=== PATIENT | female | born 1960 | race Asian ===

== ENCOUNTER → 2019-08-06 | Day surgery (SDC) | payer MEDICARE, OTHER ==
[2019-08-04 15:56] LABS: BASOPHILS % 0.4 % (0.0-1.0); EOSINOPHILS # (AUTO) 0.1 (0.0-0.4); EOSINOPHILS % 2.3 % (0.0-6.0); HEMATOCRIT 36.4 % (34.2-44.1); HEMOGLOBIN 12.2 g/dL (12.0-16.0); LYMPHOCYTES # (AUTO) 1.5 (1.0-3.2); LYMPHOCYTES % 29.1 % (18.0-39.1); MEAN CORPUSCULAR HEMOGLOBIN 32.8 pg (28-32); MEAN CORPUSCULAR HGB CONC 33.5 g/dL (31-35); MEAN CORPUSCULAR VOLUME 97.8 fL (81-99); MONOCYTES # (AUTO) 0.5 (0.2-0.8); MONOCYTES % 9.6 % (4.4-11.3); NEUTROPHILS # (AUTO) 3.1 (2.1-6.9); NEUTROPHILS % 58.4 % (38.7-80.0); RED BLOOD COUNT 3.72 x10e6/uL (3.6-5.1); RED CELL DISTRIBUTION WIDTH 12.5 % (11.7-14.4)
[2019-08-04 16:00] LABS: PLATELET COUNT 86 x10e3/uL (140-360)
[2019-08-04 16:03] LABS: INR 1.05; PARTIAL THROMBOPLASTIN TIME 34.7 seconds (23.8-35.5); PROTHROMBIN TIME 14.4 seconds (11.9-14.5)
[2019-08-04 16:10] LABS: ALANINE AMINOTRANSFERASE 49 IU/L (0-55); ALBUMIN 3.5 g/dL (3.5-5.0); ALKALINE PHOSPHATASE 164 IU/L (40-150); ANION GAP 11.7 mmol/L (8-16); BLOOD UREA NITROGEN 15 mg/dL (7-26); BUN/CREATININE RATIO 16 (6-25); CALCIUM 9.3 mg/dL (8.4-10.2); CARBON DIOXIDE 28 mmol/L (22-29); CHLORIDE 108 mmol/L (98-107); CREATININE, SERUM 0.93 mg/dL (0.57-1.11); EST GLOMERULAR FILTRATION RATE > 60 ML/MIN (60-); GLUCOSE 126 mg/dL (74-118); POTASSIUM 4.7 mmol/L (3.5-5.1); SODIUM 143 mmol/L (136-145)
[~2019-08-06] MED LIST: B&O 60MG R/S 60 MG SUPP PR ONE; BOTULINUM TOXIN TYPE A 100 UNIT VIAL IM ONE; BYSTOLIC10 MG PO; CEFTRIAXONE SOD 1 GM/NS 50 ML 50 ML IV ONE; DEXAMETHASONE SOD PHOS INJ 4 MG/ML VIAL ONE; FENTANYL CITRATE/PF 100MCG/2 ML INJ ONE; IOPAMIDOL 300MG/ML 50ML INFUS..BTL IV ONE; LIDOCAINE HCL 2% LOCAL INJ 5 ML SDV VIAL INJ ONE; LOSARTAN POTASS25 MG PO; MIDAZOLAM HCL 2 MG/2 ML VIAL ONE; MULTIVITAMINS1 EAC7 PO; ONDANSETRON HCL INJ 2MG/ML 2ML 2 MG/ML VIAL ONE; PROPOFOL IV EMULSION 10 MG/ML 20 ML VIAL ONE; SEVOFLURANE INHAL SOLN 250 ML PEN BTL ONE; VEMLIDY25 MG PO; VITAMIN C PO; VITAMIN D PO
--- OUTSIDE RECORDS SUMMARY | 2019-08-06 08:36 | XMS REPORT | Summary of Care ---
Author Author [facility] Address [address] [place] [address] Phone Unavailable Care Team Providers Care Red Hat Linux Engineer Name Role Phone DANNY Alvarado, DARIEL Unavailable Unavailable CHADWICK S[facility] M.D. 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 * Start : 14-Sep-2015 Active Vitamin C TABS TAKE 1 TABLET DAILY. * Refills: 0 Active Vitamin D CAPS TAKE 1 CAPSULE DAILY * Refills: 0 Active Calcium CAPS TAKE 1 CAPSULE DAILY * Refills: 0 Active Ginkgo Biloba 60 MG Oral Tablet TAKE DIRECTED. * Refills: 0 CHADWICK SOU[facility] M.D. * Start : 08-Oct-2017 Active Aspirin EC Adult Low Strength 81 MG Oral Tablet Delayed Release TAKE 1 TABLET BY MOUTH EVERY DAY * Refills: 0 * Start : 08-Oct-2017 Active Losartan Potassium 50 MG Oral Tablet TAKE 1 TABLET BY MOUTH EVERYDAY AT BEDTIME * Quantity: 90 Refills: 1 DARIEL DELGADO M.D. 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: Active Hyperlipidemia (272.4, E78.5) Status: Active Hypertension (401.9, I10) Status: Active Procedures Procedure Dates Details Procedures not documented Immunization Name Dates Details Immunizations not documented Family History Name Dates Details Family history of hypertension (V17.49, Z82.49) Comments: Family History Status: Active Name Dates Details Family history of cerebrovascular accident (CVA) (V17.1, Z82.3) Status: Active Social History Name Dates Details - Status: Name Dates Details Never smoker Vital Signs Date Test Result Details No Known Vitals to report Results Date Description Value Details Results not documented Plan of Care Name Dates Details Planned Observations Planned Goals not documented Planned Encounters Appointment; HANNAH CLEMENTE M.D. On: 11-Oct-2019 15:00 Instructions Name Dates Details Instructions not documented Encounters Appointment; CHADWICK S[facility] M.D. Encounter Diagnosis: Problem not documented On: 25-Sep-2017 14:30 Appointment; SE, ECHO Encounter Diagnosis: Problem not documented On: 02-Oct-2017 8:00 Appointment; CHADWICK SOU[facility] M.D. Encounter Diagnosis: Problem not documented On: 08-Oct-2017 9:30 Appointment; SE, NUCLEAR Encounter Diagnosis: Problem not documented On: 28-Oct-2017 8:00 Appointment; CHADWICK SOU[facility] M.D. Encounter Diagnosis: Problem not documented On: 14-Nov-2017 9:45 Appointment; CHADWICK S[facility] M.D. Encounter Diagnosis: Problem not documented On: 15-May-2018 9:45 Appointment; CHADWICK SUOTH M.D. Encounter Diagnosis: Problem not documented On: 04-Jun-2018 9:50 Appointment; CHADWICK S[facility] M.D. Encounter Diagnosis: Problem not documented On: 18-Jun-2018 9:00 Appointment; SE, ECHO Encounter Diagnosis: Problem not documented On: 10-Sep-2018 11:15 Appointment; DARIEL DELGADO M.D. Encounter Diagnosis: Problem not documented On: 21-Sep-2018 10:30 Appointment; DARIEL DELGADO M.D. Encounter Diagnosis: Problem not documented On: 22-Sep-2018 9:30 Appointment; MARGARITA [place] Encounter Diagnosis: Problem not documented On: 09-Apr-2019 10:30 Appointment; HANNAH CLEMENTE M.D. Encounter Diagnosis: Problem not documented On: 14-Apr-2019 15:00 Appointment; MARGARITA [place] Encounter Diagnosis: Problem not documented On: 16-Jul-2019 8:00
--- OUTSIDE RECORDS SUMMARY | 2019-08-06 08:36 | XMS REPORT | Summary of Care ---
Author Author [facility] Address [address] [place] [address] Phone Unavailable Care Team Providers Care Skimmer Reverberatory Name Role Phone DARIEL DELGADO M.D. Unavailable Unavailable CHADWICK [facility] M.D. Unavailable Unavailable BRYN Alvarado, HANNAH Unavailable Unavailable ANTONIO SALGADO, RUDY Zelaya Unavailable Unavailable AMANDA MITCHELL, DARIEL A Unavailable Unavailable [facility], ANA Umaña Unavailable Unavailable Unavailable Unavailable Functional [...] SOUTH M.D. * Start : 08-Oct-2017 Active Gabapentin 300 MG Oral Capsule * Refills: 0 Active valACYclovir HCl - 1 GM Oral Tablet * Refills: 0 Active Losartan Potassium 25 MG Oral Tablet TAKE 1 TABLET BY MOUTH DAILY * Quantity: 90 Refills: 1 HANNAH CLEMENTE M.D. * Start : 14-Apr-2019 Active Aspirin EC Adult Low Strength 81 MG Oral Tablet Delayed Release TAKE 1 TABLET BY MOUTH EVERY DAY * Refills: 0 * Start : 08-Oct-2017 Active Losartan Potassium 50 MG Oral Tablet TAKE 1 TABLET BY MOUTH EVERYDAY AT BEDTIME * Quantity: 90 Refills: 1 DANNY Alvarado, DARIEL * Start : 22-Dec-2017 Active Allergies and Adverse Reactions Name Dates [...] Planned Goals not documented Planned Encounters Appointment; MARGARITA DE [place] On: 16-Jul-2019 8:00 Appointment; HANNAH CLEMENTE M.D. On: 11-Oct-2019 15:00 [...] not documented On: 15-May-2018 9:45 Appointment; CHADWICK SOUTH M.D. Encounter Diagnosis: [...]
--- OUTSIDE RECORDS SUMMARY | 2019-08-06 08:36 | XMS REPORT | Summary of Care ---
Author Author [facility] Address [address] [place] [address] Phone Unavailable Care Team Providers Care Podiatric Medicine Professor Name Role Phone DANNY Alvarado, DARIEL Unavailable Unavailable CHADWICK S[facility] M.D. Unavailable Unavailable BRYN Alvarado, HANNAH Unavailable Unavailable ANTONIO SALGADO, RUDY Zelaya Unavailable Unavailable AMANDA MITCHELL, DARIEL A Unavailable Unavailable YOLETTE [facility], ANA Leeroy Unavailable Unavailable Unavailable Unavailable Functional Status Name [...] DELGADO M.D. * Start : 14-Sep-2015 Active Ginkgo Biloba 60 MG Oral Tablet [...] CLEMENTE M.D. * Start : 14-Apr-2019 Active Calcium CAPS TAKE 1 CAPSULE DAILY * Refills: 0 Active Vitamin D CAPS TAKE 1 CAPSULE DAILY * Refills: 0 Active Vitamin C TABS TAKE 1 TABLET DAILY. * Refills: 0 Active Allergies and Adverse Reactions Name Dates [...]
--- OUTSIDE RECORDS SUMMARY | 2019-08-06 08:36 | XMS REPORT ---
Author [facility] Address Unknown Phone Unavailable Care Team Providers Care Feedmobile Driver Name Role Phone Unavailable Unavailable Problems This patient has no known problems. Allergies, Adverse Reactions, Alerts This patient has no known allergies or adverse reactions. Medications This patient has no known medications. Encounters Start Date/Time End Date/Time Encounter Type Admission Type Attending [facility] Facility Care Department Encounter ID 2019-07-16 09:08:00 2019-07-16 09:08:00 Outpatient [facility] [id number] 2019-04-26 18:24:00 2019-04-26 18:24:00 Outpatient [facility] [id number] 2019 10:05:00 2019 10:05:00 Outpatient [facility] [id number] Results Test Description Test Time Test Comments Text Results Atomic Results Result Comments SOFT TISSUE MASS BX NOT LIPOMA 2018-01-09 14:16:00 RUN DATE: 01/09/18 [facility] - Lab PAGE 1 RUN TIME: 1416 Specimen Inquiry RUN USER: INTERFACE PATIENT: DELORIS BADILLO LOC: JANICE Cronin #: [id number] AGE/SX: 57/F ROOM: RE12/29/17REG DR: Raulito Bishop MD : 56 BED: DIS: STATUS: PRE CLI TLOC: SPEC #: [id number] RECD: 01/02/18 STATUS: JYOTI REKevin #: [id number] BOLA: 01/02/[address] [facility] [address]: Raulito Bishop MD ENTERED: 01/02/18 SP TYPE: SOFTTIMAS OTHR DR: Krystin Hanson DO ORDERED: SURG PATH LVL 4, FC 1ST CHANDLER, FC ADD/ CODES: [id number] - LYMPH NODE, NOS [id number] - NECK, NOS [id number] [id number] - NECK, NOS BIOPSY, NOS [id number] [id number] - NECK, NOS MALIGNANT LYMPH [id number] - NECK, NOS CONSULTATION, N COP[place]: [place] [address] [facility] [address] [facility] [address] [place], [place] [id number] Raulito Bishop MD [address] [facility] [address] [place] [id number] PROCEDURES: SURG PATH LVL 4 (01/02/18-1103) FC 1ST CHANDLER (01/05/18-1202) FC ADD (01/05/18) TISSUES: A. NECK, NOS - RT NECK MASS FNA CLINICAL HISTORY NECK MASS CPT CODES CPT CODE(S): 26691 , 17825 , 01764E1 , 26573H9 , 43062Q2 , , FINAL DIAGNOSIS Lymph node, right neck, biopsy: FINDINGS SUGGESTIVE OF B-CELL LYMPHOMA (See outside consultation) CONTINUED ON NEXT PAGE RUN DATE: 01/09/18 [facility] - Lab PAGE 2 RUN TIME: 1416 Specimen Inquiry RUN USER: INTERFACE SPEC #: [id number] PATIENT: DELORIS BADILLO BOBBI #[id number] (Continued) FLOW CYTOMETRY FLOW CYTOMETRY REPORT - [employer] [facility] Accession AD#: [id number] Report date: 01/03/2018 Interpretation - T CELLS WITH INCREASED CD4 TO CD8 RATIO (8.1:1) - NO B-CELL CLONALITY OR ABERRANT T-CELL ANTIGEN EXPRESSION - NO BLASTS IDENTIFIED Comment: The T cells show increase in CD4 to CD8 ratio which is a non-specific finding and can be seen in reactive conditions and lymphoproliferative disorders including Hodgkin lymphoma. Additionally, the T cells do not show loss of julio T-cell antigens or aberrant antigenic expression. The B cells are polyclonal. Therefore, there is no definite immunophenotypic evidence of a T-cell or B-cell non-Hodgkin lymphoma. Flow cytometry cannot exclude possible focal lesions, Hodgkin lymphoma, or a nonhematolymphoid process. Correlation with morphology, clinical data and other diagnostic information is recommended. Results Populations Identified Blasts: 0% B-Cells: 6.3% surface-kappa:lambda ratio: 1.57:1 (consistent with polyclonal B-Cell population) T-Cells: 29.9% CD4:CD8 ratio: 8.13:1 (high, nonspecific) NK-Cells: 1.3% Plasma cells: 0% Granulocytes: 13.6% Monocytes: 1.6% Viability: 93.3% The remaining events consist of debris and non-staining forms. Evaluated Markers CD2, CD3, CD4, CD5, CD7, CD8, CD10, CD15, CD19, CD20, CD23, CD30, CD34, CD38, CD45, CD56, CD103, CD117, FMC-7, surface kappa, surface lambda, 7AAD (Total markers: 22) Electronic Signature Bird Lizama M.D. CPT Code(s): 68207,09820(x21),37801 Disclaimer This test was developed and its performance characteristics determined by [employer]. It has not been cleared or approved by the U.S. Food and Drug Administration. The FDA has determined that such clearance is not necessary. This test is used for clinical purposes. It should not be regarded as investigational or for research. This laboratory is certified under the Clinical Laboratory Improvement Amendments of 1988 (CLIA-88) as qualified to perform high complexity clinical testing. CONTINUED ON NEXT PAGE ---RUN DATE: 01/09/18 [facility] PAGE 3 RUN TIME: 1416 Specimen Inquiry RUN USER: INTERFACE SPEC #: [id number] PATIENT: ABYDELORIS #[id number] (Continued) GROSS DESCRIPTION Right neck lymph node biopsy. The specimen consist s of a single core measuring 1 cm, filtered in a tea bag as A1. /tc/cm MICROSCOPIC DESCRIPTION Right neck lymph node biopsy. Case was sent for consultation. Please see attached consult report for final diagnosis. /claudia OUTSIDE CONSULTATION REPORT PathologyConsult Report - Listen Edition Diagnostics Received: 01/05/2018 Reported: 01/09/2018 Diagnosis Lymph node, right neck, core biopsy: - SUGGESTIVE OF B-CELL LYMPHOMA (SEE COMMENT) Comment: The overall morphologic and immunohistochemical findings in this core biopsy specimen are suggestive of B-cell nonHodgkin lymphoma, compatible with large B-cell lymphoma. Of note, flow cytometry performed on fresh tissue showed increased CD4 to CD8 T-cell ratio, no aberrant T-cell antigen expression or loss of julio T-cell antigens and no B- cell clonality, although flow cytometry can be negative due to sampling bias and occasional large cell lymphoma cells may disintegrate and may not be detected by flow cytometric evaluation. Clinical correlation is suggested, and if clinically indicated, an excisional biopsy of lymph node would be recommended for further evaluation and a definitive diagnosis. Case was discussed with Dr. Roth on 01/08/2018 at 11:15 a.m. Review Of Slides Right neck lymph node biopsy. Sections show a single core of lymphoid tissue containing lymphoid follicles and interfollicular areas. Several follicles show reactive germinal centers surrounded by mantle zone. The interfollicular areas show scattered large cells with large irregular nuclei, dispersed to open chromatin, visible nucleoli and moderate cytoplasm. In addition, the interfollicular areas contain small lymphocytes, histiocytes, eosinophils and scattered plasma cells. Scattered mitotic figures are noted. No necrosis, granuloma or metastasis is identified. Immunohistochemical stains with appropriate controls are performed and show the following: CD3: positive in T cells mainly in the interfollicular areas CD20: shows diffuse positive staining in B cells throughout the core biopsy including positive staining in large cells CD79a: shows diffuse positive staining in B cells throughout the core biopsy including CONTINUED ON NEXT PAGE -- RUN DATE: 01/09/18 [facility] - Lab PAGE 4 RUN TIME: 1416 Specimen Inquiry RUN USER: INTERFACE SPEC #: [id number] PATIENT: DELORIS BADILLO #[id number] (Continued) OUTSIDE CONSULTATION REPORT (Continued) positive staining in large cells BCL-2: positive in large cells outside the lymphoid follicles; also highlights the T cells in the interfollicular areas and mantle zone B cells of follicles and negative in germinal center B cells PAX-5: positive in B cells including the large cells in the interfollicular areas BCL-6: positive in the scattered large cells outside the follicles and also highlights the germinal center B cells CD5: positive in T cells and corresponds to CD3; no co-expression in B cells including the large cells CD23: highlights the follicular dendritic networks and also positive in scattered B cells; the large cells are negative CD43: positive in T cells and corresponds to CD3 and CD5; no co-expression in B cells including the large cells CD10: positive in germinal center B cells; negative in other B cells including the large cells CD15: positive in scattered granulocytes; negative in large cells CD30: shows weak positive staining in occasional large cells and positive in scattered immunoblasts Ki-67: shows a proliferation rate of approximately 60-80% in the germinal centers of lymphoid follicles and a proliferation rate of approximately 20% in the other areas Electronic Signature Bird Lizama M.D. CPT Code(s): 45739,22730(n82),64863 Signed SIGNATURE ON FILE Aaron Roth 01/09/18 1416 END OF REPORT FLUID, NOS 2018-01-05 14:46:00 RUN DATE: 01/05/18 [facility] - Lab PAGE 1 RUN TIME: 1447 Specimen Inquiry RUN USER: INTERFACE PATIENT: DELORIS BADILLO [facility] #: [id number] AGE/SX: 57/F ROOM: RE12/29/17REG DR: Raulito Bishop MD : 56 BED: DIS: STATUS: PRE CLI TLOC: SPEC #: [id number] RECD: 01/02/18 STATUS: JYOTI REQ #: [id number] BOLA: 01/02/18-[address]: Raulito Bishop MD ENTERED: 01/02/18 SP TYPE: FLUID OTHR DR: Triston Rolon MD, Mary A DOORDERED: CB, FNA, FNA SAMPLE ADEQ CODES: [id number] - NECK, NOS [id number] Z53204 - NECK, NOS NEEDLE YE0302 Z91483 - NECK, NOS MASS, NOS [id number] C88034 - NECK, NOS MALIGNANT LYMPH [id number] A50910 - NECK, NOS ASPIRATION, NOS COPIES TO: [place] [address] [place] [address] [email or web address] [address] [place] [address] Raulito Bishop MD [address] [facility] [address] [place] [address] ICD CODES: 782.2 - PROCEDURES: CB (01/02/18) FNA (01/05/18-1257) FNA SAMPLE ADEQ (01/05/18-1446) TISSUES: A. NECK, NOS - RIGHT NECK MASS FNA CLINICAL HISTORY NECK MASS CONTINUED ON NEXT PAGE RUN DATE: 01/05/18 [facility] PAGE 2 RUN TIME: 1447 Specimen Inquiry RUN USER: INTERFACE SPEC #: [id number] PATIENT: DELORIS BADILLO #[id number] (Continued) CPT CODES CPT CODE(S): 08455 , 72133 , 44452 , , , , FINAL DIAGNOSIS Right neck mass, fine needle aspiration: FINDINGS CONSISTENT WITH LYMPHOMA SEE COMMENT GROSS DESCRIPTION Right neck mass FNA. Four passes are performed. Received is <1 mL of bloody fluid and eight smears. The smears are sent for Pap and Diff-Quik stains. One cell block is prepared. /claudia MICROSCOPIC DESCRIPTION Right neck mass FNA. Eight presmeared slides and cell block slides are reviewed. Slides are very cellular showing a predominant lymphoid population. There is marked lymphoid atypia present. The findings are consistent with lymphoma. Additional material sent for flow and histologic evaluation. Correlate with corresponding biopsy and flow cytometry under separate report (DIALLO:[id number]). /cm SPECIMEN ADEQUACY Adequacy check was performed by Dr. Roth. COMMENT: Please correlate with corresponding surgical biopsy and flow cytometry. Signed SIGNATURE ON FILE Aaron Roth 01/05/18 1446 ------ END OF REPORT
--- OUTSIDE RECORDS SUMMARY | 2019-08-06 08:36 | XMS REPORT | Summary of Care ---
Author Author [facility] Address [address] [place] [address] Phone Unavailable Care Team Providers Care Sign Painter Apprentice Name Role Phone DANNY Alvarado, DARIEL Unavailable Unavailable CHADWICK SOUTH M.D. Unavailable Unavailable BRYN Alvarado, HANNAH Unavailable Unavailable ANTONIO SALGADO, RUDY Zelaya Unavailable Unavailable AMANDA MITCHELL, DARIEL A Unavailable Unavailable YOLETTE [facility], ANA Umaña Unavailable Unavailable Unavailable Unavailable Functional [...] I51.7) Status: Active Medications Name Dates Details Ginkgo Biloba 60 MG Oral Tablet TAKE DIRECTED. CHADWICK SOUTH M.D. * Start : 08-Oct-2017 Active Gabapentin 300 MG Oral Capsule * Refills: 0 Active valACYclovir HCl - 1 GM Oral Tablet * Refills: 0 Active Bystolic 2.5 MG Oral Tablet TAKE 1 TABLET BEDTIME * Quantity: 90 Refills: 1 DARIEL DELGADO M.D. * Start : 14-Sep-2015 Active Losartan Potassium 50 MG Oral Tablet TAKE 1 TABLET BY MOUTH EVERYDAY AT BEDTIME * Quantity: 90 Refills: 1 DARIEL DELGADO M.D. * Start : 22-Dec-2017 Active Aspirin EC Adult Low Strength 81 MG Oral Tablet Delayed Release TAKE 1 TABLET BY MOUTH EVERY DAY * Refills: 0 * Start : 08-Oct-2017 Active Losartan Potassium 25 MG Oral Tablet TAKE 1 TABLET BY MOUTH DAILY * Quantity: 90 Refills: 1 HANNAH CLEMENTE M.D. * Start : 14-Apr-2019 Active Vitamin C TABS TAKE 1 TABLET DAILY. * Refills: 0 Active Vitamin D CAPS TAKE 1 CAPSULE DAILY * Refills: 0 Active Calcium CAPS TAKE 1 CAPSULE DAILY * Refills: 0 Active Allergies and Adverse [...]
--- OUTSIDE RECORDS SUMMARY | 2019-08-06 08:36 | XMS REPORT | Summary of Care ---
Author Author [facility] Address [address] [place] [address] Phone Unavailable Care Team Providers Care Prosthetic Aide Name Role Phone DANNY Alvarado, DARIEL Unavailable Unavailable CHADWICK SOUTH M.D. Unavailable Unavailable BRYN Alvarado, HANNAH Unavailable Unavailable ANTONIO SALGADO, RUDY Zelaya Unavailable Unavailable AMANDA MITCHELL, DARIEL Kami Unavailable Unavailable [facility], ANA Umaña Unavailable Unavailable Unavailable Unavailable Functional [...]
--- OUTSIDE RECORDS SUMMARY | 2019-08-06 08:36 | XMS REPORT | Summary of Care ---
Author Author [facility] Address [address] [place] [address] Phone Unavailable Care Team Providers Care Basket Assembler Name Role Phone DANNY Alvarado, DARIEL Unavailable Unavailable CHADWICK S[facility] M.D. Unavailable Unavailable BRYN Alvarado, HANNAH Unavailable Unavailable ANTONIO SALGADO, RUDY Zelaya Unavailable Unavailable AMANDA MITCHELL, DARIEL Kami Unavailable Unavailable [facility], ANA Umaña Unavailable Unavailable Unavailable Unavailable Functional [...]
--- OUTSIDE RECORDS SUMMARY | 2019-08-06 08:36 | XMS REPORT | Summary of Care ---
Author Author BRYN Alvarado, HANNAH Morgan Unknown Address Unknown Phone Unavailable Care Team Providers Care Welder Manufacture Name Role Phone DARIEL DELGADO M.D. Unavailable Unavailable CHADWICK SOUTH M.D. Unavailable Unavailable HANNAH CLEMENTE M.D. 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 * Start : 14-Apr-2019 Active Allergies and [...] smoker Vital Signs Date Test Result Details [id number] BP Systolic 135 mm[Hg] Status: Comments: Location: LUE; Position: Sitting BP Diastolic 85 mm[Hg] Status: Comments: Location: E; Position: Sitting Height 63 in Status: Weight 143 lb Status: Body Mass Index Calculated 25.33 kg/m2 Status: Body Surface Area Calculated 1.68 m2 Status: Heart Rate 63 /min Status: Results Date Description Value Details Results not documented Plan of Care Name Dates Details Planned Observations Planned Goals not documented Planned Encounters Appointment; HANNAH CLEMENTE M.D. On: 11-Oct-2019 15:00 Interventions Provided Medication Changes* Losartan Potassium 25 MG Oral Tablet - Start Discussion/Summary* PLAN: * Ms. Myla Badillo is a 59 year old female with a Hx of HTN, HLD, mild AI, NHL s/p chemo who presents for a follow up. * 1. HTN: BP slightly above goal * -continue bystolic 2.5 qhs * -will add back the losartan 25 AM dose, continue 50 PM * 2. NHL s/p chemo in remission (last chemo 06/2018) * 3. Mild AI (last TTE 08/2018) * -continue BP control * 4. Recently diagnosed HBV cirrhosis * -planned for hepatology consultation * RTC 6 mo Instructions Name Dates Details Instructions not documented Encounters Appointment; CHADWICK SOUTH M.D. Encounter Diagnosis: Problem not documented On: 25-Sep-2017 14:30 Appointment; , ECHO Encounter Diagnosis: Problem not documented On: [...]
[2019-08-06 13:35] VITALS: BP 156/88
--- NOTE | 2019-08-29 19:41 | Operative Report ---
DATE OF PROCEDURE: 08/06/2019 SURGEON: Hilton Sam MD PREOPERATIVE DIAGNOSES: 1. Overactive bladder. 2. Urinary frequency. 3. Urinary tract infections. 4. History of urolithiasis. POSTOPERATIVE DIAGNOSES: 1. Overactive bladder. 2. Urinary frequency. 3. Urinary tract infections. 4. History of urolithiasis. 5. Grade 1 cystocele. 6. Atrophic (senile) vaginitis. OPERATION PERFORMED: 1. Cystourethroscopy with bilateral ureteral catheterization and retrograde ureteropyelography (separate procedure performed for the urinary tract infections and history of urolithiasis). 2. Interpretation of retrograde ureteropyelography. 3. Supervision of fluoroscopy, no radiologist present. 4. Cystourethroscopy with intravesical injection of Botox (separate procedure performed for diagnosis of the frequency and overactive bladder). 5. Pelvic examination under anesthesia. ANESTHESIA: General. COMPLICATIONS: None. CLINICAL SUMMARY: Myla Pruett is a 59-year-old woman with the above preoperative diagnoses. She is brought for the above procedures. She is aware of the risks of bleeding, infection, injury to adjacent structures, need for additional procedures, and elected to proceed. OPERATIVE PROCEDURE IN DETAIL: Informed consent was verified. Myla Pruett was properly identified, taken to the operating room, and placed on the cystoscopy table in supine position. Anesthesia was uneventfully begun. The patient was then carefully and gently repositioned in dorsal lithotomy position with all pressure points well padded. Her genitalia were prepared and draped in usual sterile fashion. The cystoscope sheath with obturator in place was atraumatically inserted in the patient's urethra and the bladder was drained. Panendoscopy revealed no suspicious mucosal lesions, no tumors, no stones, and no diverticula. Normally positioned configured ureteral orifices were identified. There were mild glomerulations that were noted in the bladder with minimal amount of distention. Interpretation of retrograde ureteropyelography contrast was instilled in retrograde fashion bilaterally. There were no tumors, no stones, no diverticula. Unobstructed drainage was observed bilaterally fluoroscopically. Mild ureteral tortuosity was noted. 100 units of Botox were dissolved in 10 mL of sterile saline. We injected them in half milliliters of aliquots in an even distribution in the supratrigonal bladder. The bladder was drained. The scope withdrawn. Pelvic examination under anesthesia revealed grade 1 cystocele with atrophic (senile) vaginitis. No abnormal palpable pelvic masses could be appreciated. There were no obvious mucosal lesions. The patient was then uneventfully reversed from anesthesia and taken to recovery room in stable condition. Explicit postop instructions were given. We will follow the patient up in the office. At some point in time, hydrodistention may be warranted due to the patient's glomerulations. Hilton MD [place]/MODL /[id number] cc: Tatiana Solis MD
== END | disposition home or self-care (01) ==
LOC: OR 08:28
PROVIDERS: ATTEND Urology
DX: N32.81 Overactive bladder (principal); N39.0 Urinary tract infection, site not specified; N13.8 Other obstructive and reflux uropathy; N81.10 Cystocele, unspecified; N95.2 Postmenopausal atrophic vaginitis; I10 Essential (primary) hypertension; C85.90 Non-Hodgkin lymphoma, unspecified, unspecified site; K74.60 Unspecified cirrhosis of liver; B19.10 Unspecified viral hepatitis B without hepatic coma; D69.6 Thrombocytopenia, unspecified; Z01.810 Encounter for preprocedural cardiovascular examination; Z01.812 Encounter for preprocedural laboratory examination; Z87.442 Personal history of urinary calculi
CPT/HCPCS: 36415; 52005; 52287; 74420; 80053; 85025; 85610; 85730; 93005; C1758; J0587; J0696; J1100; J2001; J2250; J2405; J2704; J3010; Q9967